=== PATIENT | female | born 1970 | race Caucasian/White ===

== ENCOUNTER 2017-04-13 07:55 | Day surgery (SDC) | payer BC ==
[2017-04-13 08:13] VITALS: RESP 14; TEMP 97.9
[2017-04-13] MEDS ORDERED: ALPRAZolam 0.5 MG TAB PO STA (08:21)
[2017-04-13 09:30] VITALS: BP 152/89; PULSE 73
--- NOTE | 2017-04-13 09:39 | US ---
ULTRASOUND GUIDED FNA THYROID BIOPSY: CLINICAL HISTORY: Left thyroid nodule FINDINGS: The procedure was explained to the patient. The risks, complications, benefits and alternatives were discussed and any questions were answered. Informed consent was obtained. Patient was placed supin e on the ultrasound table and prepped and draped in the usual sterile fashion. Utilizing a 25 gauge needle, five passes were made into the left thyroid nodule. Patient was stable throughout the procedure. Pathology is pending. All elements of maximal barrier technique were utilized. IMPRESSION: 1. Successful ultrasound guided FNA thyroid biopsy.
== END 2017-04-13 09:38 | disposition home or self-care (01) ==
LOC: RADPROMAIN 07:55
PROVIDERS: ATTEND Internal Medicine Endocrinology, Diabetes & Metabolism
DX: E04.2 Nontoxic multinodular goiter (principal)
CPT/HCPCS: 10022; 76942; 88173; 88305

== ENCOUNTER → 2017-09-09 | Outpatient (CLI) | payer BC ==
--- NOTE | 2017-09-09 16:40 | US ---
EXAMINATION TYPE: US thyroid st tissue head/neck DATE OF EXAM: 09/09/2017 COMPARISON: FNA CLINICAL HISTORY: E04.2 GOITER. GLAND SIZE: Right Lobe: 5.5 x 1.9 x 1.7 cm Overall Parenchyma: homogenous Left Lobe: 5.1 x 2.5 x 2.2 cm Overall Parenchyma: homogeneous Isthmus Thickness: 0.3 cm NODULES RIGHT: # of nodules measured on right: 2 1. 0.7 X 0.7 x 0.7 cm hypoechoic mixed nodule at the lower pole with well-defined margins; . This nodule is wider than tall and shows no intranodular vascularity. Prior size: no prior 2. 1.1 X 0.5 x 0.6 cm hypoechoic mixed nodule at the lower pole with well-defined margins; . This n odule is wider than tall and shows intranodular vascularity. Prior size: no prior LEFT: # of nodules measured on left: 1 1. 2.7 X 1.7 x 2.1 cm hypoechoic solid nodule at the lower pole with well-defined margins; . This nodule is wider than tall and shows intranodular vascularity. Prior size: 2.9 x 2.1 x 2.2 cm ISTHMUS: # of nodules measured in the isthmus: 0 Bilateral neck scanned, no evidence of lymphadenopathy. Multiple tiny hypoechoic areas scattered throughout right lobe. IMPRESSION: Bilateral thyroid nodules
== END | disposition home or self-care (01) ==
LOC: RADUSWWP 15:58
PROVIDERS: ATTEND Internal Medicine Endocrinology, Diabetes & Metabolism
DX: E04.2 Nontoxic multinodular goiter (principal)
CPT/HCPCS: 76536

== ENCOUNTER → 2018-06-30 | Outpatient (CLI) | payer BC ==
--- NOTE | 2018-06-30 16:13 | US ---
EXAMINATION TYPE: US thyroid st tissue head/neck DATE OF EXAM: 06/30/2018 COMPARISON: US dated 09/09/2017 and 04/13/2017 CLINICAL HISTORY: E04.2 Nontoxic multinodular Goiter. GLAND SIZE: Right Lobe: 5.8 x 1.6 x 2.1 cm Overall Parenchyma: homogenous Left Lobe: 5.5 x 2.2 x 2.6 cm Overall Parenchyma: homogeneous Isthmus Thickness: 0.4 cm NODULES RIGHT: # of nodules measured on right: 3 1. 1.1 X 0.5 x 0.7 cm hypoechoic solid nodule at the lower pole with well-defined margins; . This nodule is wider than tall and shows intranodular vascularity. Prior size: 1.1 x 0.5 x 0.6 cm 2. 0.8 X 0.7 x 0.7 cm hypoechoic mixed nodule at the lower pole with well-defined margins; . This n odule is wider than tall and shows no intranodular vascularity. Prior size: 0.7 x 0.7 x 0.7 cm LEFT: # of nodules measured on left: 1 1. 2.9 X 1.8 x 2.3 cm hypoechoic solid nodule at the lower pole with well-defined margins; . This nodule is wider than tall and shows intranodular vascularity. Prior size: 2.7 x 1.7 x 2.1 cm ISTHMUS: # of nodules measured in the isthmus: 0 Bilateral neck scanned, no evidence of lymphadenopathy. Nodules as described. IMPRESSION: Minimal enlargement of the dominant left thyroid nodule from 2.7 cm to 2.9 cm in a multinodular goite r. The dominant nodule appears to have been biopsied on the prior FNA of 04/13/2017.
[2018-06-30 16:25] LABS: T4, Free (Free Thyroxine) 0.98 ng/dL (0.78-2.19)
== END | disposition home or self-care (01) ==
LOC: RADUSWWP 15:26
PROVIDERS: ATTEND Internal Medicine Endocrinology, Diabetes & Metabolism
DX: E04.2 Nontoxic multinodular goiter (principal)
CPT/HCPCS: 36415; 76536; 84439; 84443

== ENCOUNTER → 2019-01-31 | Outpatient (CLI) | payer BC ==
--- NOTE | 2019-01-31 16:47 | US ---
EXAMINATION TYPE: US thyroid st tissue head/neck DATE OF EXAM: 01/31/2019 COMPARISON: Prior thyroid ultrasound June 30, 2018 CLINICAL HISTORY: E04.2 Thyroid Nodule. GLAND SIZE: Right Lobe: 5.0 x 1.6 x 2.0 cm Overall Parenchyma: homogenous Left Lobe: 5.2 x 2.3 x 2.7 cm Overall Parenchyma: homogeneous Isthmus Thickness: .4cm NODULES RIGHT: # of nodules measured on right: 3 1. .8X .7 x .8cm mixed nodule at the lower pole with well-defined margins; . This nodule is wider t nieves tall and shows intranodular vascularity. Prior size: .8 .7 x .7cm 2.1.0 x .7 x 1.0cm solid nodule at the lower pole well defined margins; . This nodule is wider than tall and shows intranodular vascularity. Prior size: 1.1 x .5 x .7 cm 3. .6 X .5 x .7 cm hypoechoic solid nodule at the lower pole with well-defined margins; . This nodu le is wider than tall and shows intranodular vascularity. Prior size No Prior. LEFT: # of nodules measured on left: 1 1. 3.1 X 1.8 x 3.2 cm hypoechoic solid nodule at the mid to lower pole with well-defined margins; . This nodule is wider than tall and shows intranodular vascularity. Prior size: 2.9 x 1.8 x 2.3 cm ISTHMUS: # of nodules measured in the isthmus: 1 1. .6 X .4 x .5 cm hypoechoic solid nodule at the right pole with well-defined margins; . This nod ule is wider than tall and shows intranodular vascularity. Prior size No prior Bilateral neck scanned, no evidence of lymphadenopathy. Redemonstration of homogeneous slightly enlarged thyroid with multiple nodules. Dominant 3.1 cm nodul e is not significantly changed IMPRESSION: As above. No significant enlarging or new greater than 1 cm nodules.
== END | disposition home or self-care (01) ==
LOC: RADUSMAIN 15:49
PROVIDERS: ATTEND Internal Medicine Endocrinology, Diabetes & Metabolism
DX: E04.2 Nontoxic multinodular goiter (principal)
CPT/HCPCS: 76536; 84439; 84443

== ENCOUNTER → 2020-03-25 | Outpatient (CLI) | payer BC ==
[2020-03-25 17:12] LABS: T4, Free (Free Thyroxine) 1.17 ng/dL (0.78-2.19)
--- NOTE | 2020-03-26 07:26 | US ---
EXAMINATION TYPE: US thyroid st tissue head/neck DATE OF EXAM: 03/25/2020 COMPARISON: US CLINICAL HISTORY: E04.2 Nontoxic Multinodular goiter. Nontoxic multinodular goiter. Hx biopsy. GLAND SIZE: Right Lobe: 5.8 x 2.0 x 2.5 cm Overall Parenchyma: homogenous Left Lobe: 4.8 x 2.5 x 2.5 cm Overall Parenchyma: homogeneous Isthmus Thickness: 0.5 cm NODULES RIGHT: # of nodules measured on right: 3 1. 0.9 X 0.8 x 0.8 cm spongiform, mixed nodule, which is as wide as it is tall, with smooth margins , without echogenic foci. Prior size: 0.8 x 0.8 x 0.7 cm 2. 0.9 X 0.7 x 0.7 cm mixed cystic and solid, hypoechoic nodule, which is as wide as it is tall, wi th smooth margins, without echogenic foci. Prior size: 0.6 x 0.7 x 0.5 cm 3. 0.8 X 0.8 x 0.7 cm solid or almost completely solid, hypoechoic nodule, which is wider than tall , with smooth margins, with possible small echogenic foci. Prior size: 1.0 x 1.0 x 0.7 cm -Largest 3 nodules measured. LEFT: # of nodules measured on left: 2 1. 3.2 X 2.5 x 2.1 cm solid or almost completely solid, hypoechoic nodule, which is wider than tall , with smooth margins, without echogenic foci. Prior size: 3.1 x 3.2 x 1.8 cm 2. 0.4 X 0.3 x 0.3 cm cystic or almost completely cystic, anechoic nodule, which is as wide as it i s tall, with smooth margins, without echogenic foci. Prior size: no prior ISTHMUS: # of nodules measured in the isthmus: 1 1. 0.7 X 0.6 x 0.4 cm mixed cystic and solid, mixed nodule, which is wider than tall, with lobulate d or irregular margins, without echogenic foci. Prior size: 0.6 x 0.5 x 0.4 cm Bilateral neck scanned, no evidence of lymphadenopathy. IMPRESSION: Highly suspicious nodules 2017 ACR TI-RADS LEVEL: TR 3, consider FNA dominant nodule left lobe *Highest TI-RADS level nodule reported
== END | disposition home or self-care (01) ==
LOC: RADUSWWP 16:20
PROVIDERS: ATTEND Internal Medicine Endocrinology, Diabetes & Metabolism
DX: E04.2 Nontoxic multinodular goiter (principal)
CPT/HCPCS: 76536; 84439; 84443

== ENCOUNTER → 2021-02-20 | Outpatient (CLI) | payer BC ==
--- NOTE | 2021-02-20 15:48 | US ---
EXAMINATION TYPE: US thyroid st tissue head/neck DATE OF EXAM: 02/20/2021 COMPARISON: US CLINICAL HISTORY: E04.2 NONTOXIC MULTINODULAR GOITER. GLAND SIZE: Right Lobe: 5.0 x 2.1 x 1.4 cm Overall Parenchyma: homogenous Left Lobe: 5.3 x 2.3 x 2.7 cm Overall Parenchyma: homogeneous Isthmus Thickness: 0.3 cm NODULES RIGHT: # of nodules measured on right: 3 1. 0.9 X 0.6 x 0.8 cm, lower, cystic or almost completely cystic, anechoic nodule, which is wider t nieves tall, with smooth margins, without echogenic foci. Prior size: 0.9 X 0.8 x 0.8 2. 1.1 X 0.7 x 0.8 cm, lower, mixed cystic and solid, isoechoic nodule, which is taller than wide, with smooth margins, echogenic foci. Prior size: 0.9 X 0.7 x 0.7 3. 0.9 X 0.7 x 0.8 cm, lower, mixed cystic and solid, isoechoic nodule, which is wider than tall, w ith smooth margins, without echogenic foci. Prior size: 0.8 X 0.8 x 0.7cm LEFT: # of nodules measured on left: 1. 3.3 X 2.1 x 2.3 cm, mid, solid or almost completely solid, hypoechoic nodule, which is wider joseph n tall, with smooth margins, without echogenic foci. TR 4 Prior size: 3.2 X 2.5 x 2.1cm 2. 0.3 X 0.1 x 0.5 cm, mid, cystic or almost completely cystic, anechoic nodule, which is taller t nieves wide, with smooth margins, without echogenic foci. Prior size: 0.4 X 0.3 x 0.3 ISTHMUS: # of nodules measured in the isthmus: 1 1. 0.6 X 0.4 x 0.4 cm right, solid nodule, which is wider than tall, with smooth margins, without e chogenic foci. Prior size: 0.7 X 0.6 x 0.4cm Bilateral neck scanned, no evidence of lymphadenopathy. IMPRESSION: Moderately suspicious nodule. This was biopsied 04/13/2017. 2017 ACR TI-RADS LEVEL: TR-RADS 4 - Moderately Suspicious: Follow if > 1 cm, FNA if > 1.5 cm *Highest TI-RADS level nodule reported
== END | disposition home or self-care (01) ==
LOC: RADUSWWP 14:13
PROVIDERS: ATTEND Internal Medicine Endocrinology, Diabetes & Metabolism
DX: E04.1 Nontoxic single thyroid nodule (principal)
CPT/HCPCS: 76536

== ENCOUNTER 2021-02-27 12:24 | Day surgery (SDC) | payer BC ==
[2021-02-27 13:33] VITALS: RESP 16; TEMP 98.1
[2021-02-27 14:25] VITALS: BP 149/75; PULSE 81
--- NOTE | 2021-02-27 17:02 | US ---
ULTRASOUND GUIDED FNA THYROID BIOPSY: CLINICAL HISTORY: 02/20/2021 FINDINGS: The procedure was explained to the patient. The risks, complications, benefits and alternatives were discussed and any questions were answered. Informed consent was obtained. Patient was placed supin e on the ultrasound table and prepped and draped in the usual sterile fashion. Utilizing a 25 gauge needle, five passes were made into the requested left thyroid nodule. Patient was stable throughout the procedure. Pathology is pending. All elements of maximal barrier technique were utilized. IMPRESSION: 1. Successful ultrasound guided FNA thyroid biopsy.
== END 2021-02-27 14:25 | disposition home or self-care (01) ==
LOC: RADPROMAIN 12:24
PROVIDERS: ATTEND Internal Medicine Endocrinology, Diabetes & Metabolism
DX: E04.2 Nontoxic multinodular goiter (principal)
CPT/HCPCS: 10005; 88173; 88305

== ENCOUNTER → 2022-09-22 | Outpatient (CLI) | payer BC ==
[2022-09-22 20:02] LABS: T4, Free (Free Thyroxine) 1.17 ng/dL (0.800-1.800)
--- NOTE | 2022-09-23 09:31 | US ---
EXAMINATION TYPE: US thyroid st tissue head/neck DATE OF EXAM: 09/22/2022 COMPARISON: US 2020,biopsy on 04/13/2017. CLINICAL INDICATION: Female, 52 years old with history of E04.2 NONTOXIC MULTINODULAR GOITER; GLAND SIZE: Right Lobe: 5.6 x 2.0 x 2.0 cm Overall Parenchyma: heterogenous Left Lobe: 5.2 x 2.3 x 2.8 cm Overall Parenchyma: heterogenous Isthmus Thickness: 0.4 cm NODULES RIGHT: # of nodules measured on right: multiple nodules with largest described below 1. 1.1 X 0.7 x 1.0 cm, lower medial, Prior size: 1.1 x 0.7 x 0.8 cm TIRADS Score: 4 TIRADS Category 4: Moderately Suspicious Composition: Solid or almost completely solid (2 points). Echogenicity: Hypoechoic (2 points). Shape: Wider than tall (0 points). Margin: Smooth (0 points). Echogenic foci: None or large comet-tail artifacts (0 points) Recommendation: If >1.5cm: FNA; If >1cm: Follow up at 1,2, 3,5 years LEFT: # of nodules measured on left: 1 1. 3.3 X 2.0 x 2.8 cm, lower mid, Prior size: 3.3 x 2.1 x 2.3 cm TIRADS Score: 4 TIRADS Category 4: Moderately Suspicious Composition: Solid or almost completely solid (2 points). Echogenicity: Hypoechoic (2 points). Shape: Wider than tall (0 points). Margin: Smooth (0 points). Echogenic foci: None or large comet-tail artifacts (0 points) Recommendation: If >1.5cm: FNA; If >1cm: Follow up at 1,2, 3,5 years This was preceded biopsy on 04/13/2017. ISTHMUS: # of nodules measured in the isthmus: 0 Bilateral neck scanned, no evidence of lymphadenopathy. IMPRESSION: Stable exam given differences in technique. The left thyroid nodule was previously biopsied in 2017.
== END | disposition home or self-care (01) ==
LOC: RADUSWWP 15:26
PROVIDERS: ATTEND Internal Medicine Endocrinology, Diabetes & Metabolism
DX: E04.2 Nontoxic multinodular goiter (principal)
CPT/HCPCS: 76536; 84439; 84443

== ENCOUNTER 2022-12-02 11:48 | Day surgery (SDC) | payer BC ==
[2022-12-02 13:10] VITALS: RESP 18; TEMP 97.5
[2022-12-02 14:56] VITALS: BP 174/97; PULSE 79
--- NOTE | 2022-12-02 15:46 | US ---
CLINICAL INDICATION: Left thyroid nodule. Previously biopsied in 2020 and 2016. COMPARISON: Multiple thyroid ultrasounds with most recent 09/22/2022 Informed consent was obtained. The risks and benefits of the procedure were discussed with the patien t. The site was marked. Timeout procedure was performed Ultrasound imaging of the thyroid demonstrates a solid hypoechoic nodule with smooth margins within t he left thyroid lobe corresponding to prior ultrasound The patient was prepped, draped in the usual sterile fashion, and locally anesthetized with 1% lidoca ine. Five fine needle aspiration were then performed with a 25 gauge needle. Samples were sent to [facility] pathology department for further analysis. Patient tolerated the procedure without incident and w as sent home in stable condition. IMPRESSION: Successful ultrasound guided fine needle aspiration.
== END 2022-12-02 14:10 | disposition home or self-care (01) ==
LOC: RADPROMAIN 11:48
PROVIDERS: ATTEND Internal Medicine Endocrinology, Diabetes & Metabolism
DX: E04.1 Nontoxic single thyroid nodule (principal)
CPT/HCPCS: 10005; 88173; 88305

== ENCOUNTER → 2024-05-04 | Outpatient (CLI) | payer OTHER ==
--- NOTE | 2024-05-04 13:49 | US ---
EXAMINATION TYPE: US thyroid st tissue head/neck DATE OF EXAM: 05/04/2024 COMPARISON: 09/22/22 CLINICAL INDICATION: Female, 54 years old with history of E04.2 NONTOXIC MULTINODULAR GOITER; goiter TECHNIQUE: Grayscale and color Doppler imaging of the thyroid gland. FINDINGS: GLAND SIZE: Right Lobe: 5.4 x 2.0 x 2.3 cm Overall Parenchyma: heterogeneous Left Lobe: 5.2 x 3.1 x 2.4 cm Overall Parenchyma: heterogeneous Isthmus Thickness: 0.48 cm NODULES RIGHT: # of nodules measured on right: 1 1. 1.9 X 1.3 x 1.2 cm, lower mid, solid or almost completely solid, hypoechoic nodule, which is wid er than tall, with lobulated or irregular margins, without echogenic foci. TR4 lesion. Prior size: 1.1 x 1.0 x 0.7 cm *Multiple subcentimeter nodules seen LEFT: # of nodules measured on left: 1 1. 3.1 X 2.6 x 1.9 cm, lower lateral, solid or almost completely solid, hypoechoic nodule, which i s wider than tall, with smooth margins, without echogenic foci. Prior size: 3.3 x 2.8 x 1.9 cm ISTHMUS: # of nodules measured in the isthmus: 0 Bilateral neck scanned, no evidence of lymphadenopathy. Heterogeneous multinodular thyroid is redemonstrated. IMPRESSION: Enlarging right-sided TR4 nodule. Ultrasound-guided FNA advised to further evaluate. 2017 ACR TI-RADS LEVEL: TR-RADS 4 - Moderately Suspicious: Follow if > 1 cm, FNA if > 1.5 cm *Highest TI-RADS level nodule reported [email or web address], , 05/04/2024 1:47 PM
== END | disposition home or self-care (01) ==
LOC: RADUSWWP 12:35
PROVIDERS: ATTEND Internal Medicine Endocrinology, Diabetes & Metabolism
DX: E04.2 Nontoxic multinodular goiter (principal)
CPT/HCPCS: 76536